=== PATIENT | female | born 1955 | race Caucasian/White ===

== ENCOUNTER → 2018-08-24 12:39 | Emergency (ER) | payer BC, OTHER ==
[2018-08-24 15:36] VITALS: BP 150/81
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
== END | disposition home or self-care (01) ==
LOC: ED 12:39
DX: S16.1XXA Strain of muscle, fascia and tendon at neck level, initial encounter (principal); M19.90 Unspecified osteoarthritis, unspecified site; V73.6XXA Passenger on bus injured in collision with car, pick-up truck or van in traffic accident, initial encounter; Y92.410 Unspecified street and highway as the place of occurrence of the external cause
CPT/HCPCS: 99282

== ENCOUNTER 2019-04-30 19:08 | Emergency (ER) | payer MEDICARE, BC ==
--- NOTE | 2019-04-30 19:35 | ED ---
Upper Extremity Pain - HPI Summary HPI Summary: Patient presents with pain and deformity to left wrist status post mechanical fall this evening. Patient denies any other injury, pain or symptoms. No anti- coag. 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 Of Injury: Fall From A Standing Position Onset/Duration: Started Hours Ago Timing: Constant Severity Initially: Moderate Severity Currently: Moderate Pain Location: Wrist Character: Aching, Throbbing Aggravating Factor(s): Movement Alleviating Factor(s): Rest, Ice Associated Signs & Symptoms: Positive: Swelling - Allergies/Home Medications Allergies/Adverse Reactions: Allergies Allergy/AdvReac Type Severity Reaction Status Date / Time No Known Allergies Allergy Verified 04/30/19 19:12 PMH/Surg Hx/FS Hx/Imm Hx Endocrine/Hematology History: Denies: Hx Anticoagulant Therapy Cardiovascular History: Denies: Hx Pacemaker/ICD History: Denies: Hx Dialysis Musculoskeletal History: Reports: Hx Arthritis Denies: Hx Rheumatoid Arthritis, Hx Osteoporosis Sensory History: Reports: Hx Contacts or Glasses - GLASSES Denies: Hx Hearing Aid Opthamlomology History: Reports: Hx Contacts or Glasses - GLASSES EENT History: Denies: Hx Deafness Neurological History: Denies: Hx Dementia Psychiatric History: Denies: Hx Autism - Cancer History Hx Chemotherapy: No Hx Radiation Therapy: No - Surgical History Surgery Procedure, Year, and Place: COLONOSCOPY Hx Anesthesia Reactions: No Infectious Disease History: No Infectious Disease History: Denies: Traveled Outside the [place] in Last 30 Days - Family History Known Family History: Positive: Non-Contributory - Social History Alcohol Use: Rare Substance Use Type: Reports: None Smoking Status (MU): Never Smoked Tobacco Review of Systems Constitutional: Negative Eyes: Negative ENT: Negative Cardiovascular: Negative Respiratory: Negative Gastrointestinal: Negative Genitourinary: Negative Musculoskeletal: Other Skin: Negative Neurological: Negative Psychological: Normal All Other Systems Reviewed And Are Negative: Yes Physical Exam - Summary Physical Exam Summary: Obvious deformity to dorsal surface of left wrist. PMS intact distally. Normal range of motion of left elbow. Triage Information Reviewed: Yes Vital Signs On Initial Exam: Initial Vitals Temp Pulse Resp BP Pulse Ox 97.0 F 51 15 145/79 100 04/30/19 19:10 04/30/19 19:10 04/30/19 19:10 04/30/19 19:10 04/30/19 19:10 Vital Signs Reviewed: Yes Appearance: Positive: Well-Appearing Skin: Positive: Warm Head/Face: Positive: Normal Head/Face Inspection Eyes: Positive: Normal Dental: Negative: Dental Fracture @, Bleeding Neck: Positive: Supple Cardiovascular: Positive: Normal Abdomen Description: Positive: Nontender Musculoskeletal: Positive: Normal Neurological: Positive: Normal Psychiatric: Positive: Normal AVPU Assessment: Alert - [place] Coma Scale Best Eye Response: 4 - Spontaneous Best Motor Response: 6 - Obeys Commands Best Verbal Response: 5 - Oriented Coma Scale Total: 15 Procedures - Sedation Patient Received Moderate/Deep Sedation with Procedure: No Diagnostics - Vital Signs Vital Signs Temp Pulse Resp BP Pulse Ox 04/30/19 19:10 97.0 F 51 15 145/79 100 - Laboratory Lab Statement: Any lab studies that have been ordered have been reviewed, and results considered in the medical decision making process. Course/Dx - Course Course Of Treatment: Patient presents with pain and deformity to left wrist status post mechanical fall this evening. Patient denies any other injury, pain or symptoms. No anti-coag. Vital signs within normal limits. X-ray positive for colles fracture left wrist. Orthopedics litigation claim representative Dr. Christensen happened to be present. Dr. Christensen performed reduction and splinting of left wrist. Postreduction x-ray confirms improvement. Patient placed in sling. Patient will follow-up with her orthopedist Dr. Pichardo in clinic tomorrow. - Diagnoses Provider Diagnoses: Colles' fracture of left radius Discharge ED - Sign-Out/Discharge Documenting (check all that apply): Patient Departure - Discharge Plan Condition: Stable Disposition: HOME Patient Education Materials: Wrist Fracture in Adults (ED) Referrals: Griselda Kwok MD [Primary Care Provider] - Myra Pichardo MD [Medical Doctor] - Additional Instructions: Follow-up with Dr. Pichardo tomorrow morning. Alternate ibuprofen 600 mg with Tylenol 650 mg every 3 hours for pain as needed. Wear sling. - Billing Disposition and Condition Condition: STABLE Disposition: Home
[2019-04-30] MEDS ORDERED: Lidocaine 2% 10 ML* VIAL INJ ONE (19:53)
[2019-04-30] MEDS ORDERED: Morphine 4 MG/ML VIAL (1 ml) 4 MG/ML VIAL IM ONE (19:58)
[2019-04-30] MEDS ORDERED: Lidocaine 2% MPF* 2 ML VIAL ONE (19:59)
[2019-04-30] MEDS ORDERED: Lidocaine 1% INJ* 10 MG/ML 30 ML SDV ONE (20:04)
[2019-04-30 22:15] VITALS: BP 109/79
== END 2019-04-30 20:50 | disposition home or self-care (01) ==
LOC: ED 19:08
DX: S52.572A Other intraarticular fracture of lower end of left radius, initial encounter for closed fracture (principal); S52.612A Displaced fracture of left ulna styloid process, initial encounter for closed fracture; W19.XXXA Unspecified fall, initial encounter; Y92.9 Unspecified place or not applicable
CPT/HCPCS: 25605; 96372; 99283; J2270